=== PATIENT | male | born 1975 | race Caucasian/White ===

== ENCOUNTER → 2020-03-31 | Emergency (ER) | payer BC ==
--- NOTE | 2020-03-31 01:40 | RADIOLOGY REPORT (SQ) ---
CLINICAL HISTORY: ETOH, head injury COMPARISON: None. TECHNIQUE: CT HEAD WITHOUT IV CONTRAST on 03/31/2020 12:50 AM CDT This exam was performed according to our departmental dose-optimization program, which includes automated exposure control, adjustment of the mA and/or kV according to patient size and/or use of iterative reconstruction technique. FINDINGS: There is no acute hemorrhage, mass effect or midline shift. Yeboah-white differentiation is preserved. There is no hydrocephalus. There is no significant volume loss for age. The calvarium is intact. Orbits and globes are unremarkable. The paranasal sinuses are clear. Mastoid air cells are clear. IMPRESSION: No acute intracranial findings.
--- NOTE | 2020-03-31 01:40 | RADIOLOGY REPORT (SQ) ---
CLINICAL HISTORY: ETOH, head injury COMPARISON: None. TECHNIQUE: CT CERVICAL SPINE WITHOUT IV CONTRAST on 03/31/2020 12:50 AM CDT This exam was performed according to our departmental dose-optimization program, which includes automated exposure control, adjustment of the mA and/or kV according to patient size and/or use of iterative reconstruction technique. FINDINGS: There is no acute fracture. Alignment is anatomic. There is moderate narrowing of the C6-7 disc. Vertebral body heights are preserved. Soft tissues are unremarkable. IMPRESSION: No acute fracture or subluxation. MTDD
== END ==
LOC: ER 00:33
DX: Z53.21 Procedure and treatment not carried out due to patient leaving prior to being seen by health care provider (principal); S09.90XA Unspecified injury of head, initial encounter; F10.929 Alcohol use, unspecified with intoxication, unspecified; X58.XXXA Exposure to other specified factors, initial encounter
CPT/HCPCS: 70450; 72125

== ENCOUNTER 2020-09-12 22:09 | Inpatient (IN) | payer BC ==
[2020-09-12] MEDS ORDERED: NORMAL SALINE 1000 ML 1,000 ML IV ONE (22:43)
[2020-09-12] MEDS ORDERED: KETOROLAC TROMETHAMINE INJ/PF 30 MG/1 ML SDV IV ONE (22:43)
[2020-09-12] MEDS ORDERED: DEXAMETHASONE SOD PHOS INJ 10 MG/1 ML VIAL IV ONE (22:43)
--- NOTE | 2020-09-12 23:05 | ER Document Report ---
ED General - General Chief Complaint: Facial Swelling Stated Complaint: FACE SWOLLEN, COUGHING UP BLOOD Time Seen by Provider: 09/12/20 22:40 Notes: 45-year-old male no significant past medical history presents with throat swelling for 2 days. Patient was well when he woke up yesterday morning and gradually had onset of left throat and neck swelling. Symptoms progressed and over the last several hours has had drooling, change in voice, and shortness of breath. Patient denies any prior episodes, fever, other medical history, diabetes, HIV, immunocompromise history. History limited by patient acuity. - Related Data Allergies/Adverse Reactions: amoxicillin trihydrate [From Augmentin] Allergy (Unverified 04/12/20 15:38) Potassium Clavulanate * [From Augmentin] Allergy (Unverified 04/12/20 15:38) Past Medical History - General Information source: Patient - Social History Smoking Status: Unknown if Ever Smoked Family History: Reviewed & Not Pertinent, Other - unable 2/2 acuity Review of Systems - Review of Systems -: Yes ROS unobtainable due to patient's medical condition - unable 2/2 acuity Physical Exam - Vital signs Vitals: Temp Pulse Resp BP Pulse Ox 98.3 F 103 H 22 H 176/103 H 99 09/12/20 22:30 09/12/20 22:30 09/12/20 22:30 09/12/20 22:30 09/12/20 22:30 - Notes Notes: PHYSICAL EXAMINATION: GENERAL: Very uncomfortable appearing middle-aged male HEAD: Atraumatic, normocephalic. EYES: Pupils equal round and appropriate constriction, sclera anicteric, conjunctiva are normal. ENT: Hot potato voice, normal floor of mouth, marked focal posterior left pharyngeal edema with uvula deviated to the right side, no visible exudates, no uvular or lingual edema NECK: Normal range of motion, supple, anterior left neck edema with normal over lying skin LUNGS: Breath sounds clear to auscultation bilaterally and equal, no wheezes or stridor, tachypneic, mild accessory muscle use, speaking in few word sentences, drooling HEART: Mildly tachycardic, regular rhythm, no murmurs ABDOMEN: Soft, nontender EXTREMITIES: Normal range of motion, no pitting or edema. No cyanosis. NEUROLOGICAL: Awake, alert, conversing appropriately, moves all extremities spontaneously. PSYCH: Normal mood, normal affect. SKIN: Warm, Dry, normal turgor Course - Re-evaluation Re-evalutation: 09/12/20 23:04 2 days onset left posterior pharyngeal edema, concern for pending airway obs truction, patient tachypneic without stridor currently, drooling, given propensity for decompensation with oral tracheal intubation patient requires fiberoptic awake intubation for best possible outcome. Presentation likely secondary to large peritonsillar abscess, no risk factors for angioedema and not consistent with this presentation. I called anesthesiology via spanner operator for awake fiberoptic intubation, no answer, have alerted charge nurse who is working on issue. We will continue to closely monitor. Airway cart set up at bedside, patient on nonrebreather 09/12/20 23:27 COMPLAINT INSPECTOR Malik Fitzgerald and anesthesiologist Vivien at bedside, I discussed with Dr. Jean and will be managing patient's airway in OR. Continuing to monitor closely until transfer to the OR. 09/12/20 23:41 Patient's respiratory status unchanged, Dr. Jean outside room waiting to take patient to the OR. 09/13/20 23:50 Patient taken to the OR with anesthesiologist and Dr. Jean - Vital Signs Vital signs: Temp Pulse Resp BP Pulse Ox 98.3 F 103 H 22 H 179/116 H 97 09/12/20 22:30 09/12/20 22:31 09/12/20 22:30 09/12/20 22:31 09/12/20 22:31 - Laboratory Result Diagrams: 09/12/20 22:58 09/12/20 22:58 Laboratory results interpreted by me: 09/12/20 09/12/20 22:58 22:58 WBC 12.5 H Hgb 17.8 H Sodium 136.6 L Carbon Dioxide 20 L Discharge - Discharge Clinical Impression: Airway compromise, Pharyngeal edema Disposition: SAME DAY SURGERY Admitting Provider: Surgicalist - [facility] Admitted: OR
[2020-09-12] MEDS ORDERED: LIDOCAINE 2% INJ-PF (20 MG/ML) 10 ML AMPUL NEB ONE (23:11)
[2020-09-12 23:12] LABS: ABSOLUTE BASOPHILS # (AUTO) 0.1 10^3/uL (0.0-0.2); ABSOLUTE EOSINOPHILS # (AUTO) 0.1 10^3/uL (0.0-0.6); ABSOLUTE LYMPHOCYTES (AUTO) 3.5 10^3/uL (0.5-4.7); ABSOLUTE MONOCYTES (AUTO) 0.9 10^3/uL (0.1-1.4); ABSOLUTE NEUT (AUTO) 7.9 10^3/uL (1.7-8.2); BASOPHILS % (AUTO) 0.5 % (0-2); EOSINOPHILS % (AUTO) 0.8 % (0-6); HEMATOCRIT 50.2 % (37.9-51.0); HEMOGLOBIN 17.8 g/dL (13.5-17.0); LYMPHOCYTES % (AUTO) 28.2 % (13-45); MEAN CORPUSCULAR HEMOGLOBIN 32.5 pg (27.0-33.4); MEAN CORPUSCULAR HGB CONC 35.5 g/dL (32.0-36.0); MEAN CORPUSCULAR VOLUME 92 fl (80-97); MONOCYTES % (AUTO) 7.4 % (3-13); PLATELET COUNT 190 10^3/uL (150-450); RED BLOOD COUNT 5.47 10^6/uL (4.35-5.55); RED CELL DISTRIBUTION WIDTH 12.6 % (11.5-14.0); SEGMENTED NEUTROPHILS % (AUTO) 63.1 % (42-78); TOTAL CELLS COUNTED % (AUTO) 100 %; WHITE BLOOD COUNT 12.5 10^3/uL (4.0-10.5)
[2020-09-12] MEDS ORDERED: GLYCOPYRROLATE INJ 0.4 MG/2 ML VIAL IM ONE (23:12)
[2020-09-12 23:28] LABS: ALBUMIN 4.7 g/dL (3.5-5.0); ALKALINE PHOSPHATASE 90 U/L (38-126); ANION GAP 11 (5-19); ASPARTATE AMINO TRANSFERASE 28 U/L (17-59); BILIRUBIN,DIRECT 0.2 mg/dL (0.0-0.4); BILIRUBIN,TOTAL 1.1 mg/dL (0.2-1.3); BLOOD UREA NITROGEN 8 mg/dL (7-20); CALCIUM 9.6 mg/dL (8.4-10.2); CARBON DIOXIDE 20 mmol/L (22-30); CHLORIDE 106 mmol/L (98-107); GLUCOSE 108 mg/dL (75-110); TOTAL PROTEIN 7.5 g/dL (6.3-8.2)
[2020-09-12] MEDS ORDERED: PROPOFOL INJ 200 MG/20 ML VIAL IV ONE (23:40)
[2020-09-12] MEDS ORDERED: ONDANSETRON HCL INJ/PF 4 MG/2 ML SDV IV PRN (23:59)
[2020-09-13] MEDS ORDERED: DEXMEDETOMIDINE INJ 80 MCG/20 ML VIAL IV ONE (00:01)
[2020-09-13] MEDS ORDERED: PROPOFOL 1,000 MG/100 ML INFUS..BTL IV ONE (00:51)
[2020-09-13] MEDS ORDERED: FENTANYL CITRATE INJ/PF 100 MCG/2 ML AMPUL ONE ×3 (01:05→16:25)
[2020-09-13] MEDS ORDERED: MIDAZOLAM 2 MG/2 ML INJ ONE ×2 (01:09)
[2020-09-13] MEDS ORDERED: MIDAZOLAM HCL 50 MG/100 ML RTUINJ ONE (01:25)
[2020-09-13] MEDS: MIDAZOLAM HCL 50 MG/100 ML RTUINJ IV PRN ×3 (01:33→17:53)
--- NOTE | 2020-09-13 02:03 | CRITICAL CARE ADMISSION REPORT ---
HPI Date:: 09/13/20 Time:: 01:00 Reason for ICU Reason:: Peritonsillar abscess Admission Date/Time & PCP: Admission Date/Time: 09/12/20 23:52 Primary Care Provider: HPI: Mr. Abdiaziz Kirk is a 45-year-old male with significant past medical history. Presented to the ER with complaints of left throat and neck swelling, that began on 1020 7 in the AM. Became progressively worse throughout the day, he began drooling, muffled voice, and shortness of breath. Which prompted him to come to the ER. I was called by Dr. Haely to evaluate patient for intubation. Given the possibility of rapid decline I called Dr. Jean, and Dr. Peck spoke with anesthesia. He was taken to the OR for intubation. He is admitted to the ICU for further management. - Diagnosis/Plan (1) Pharyngeal edema Is this a current diagnosis for this admission?: Yes Plan: Status post intubation in the OR. ENT saw patient was not able to drain anything. He will follow up with him in the morning. Keep intubated and sedated Decadron 8 mg IV every 12 hours Linezolid 600 mg every 12 hours (2) Airway compromise Is this a current diagnosis for this admission?: Yes Plan: Electively intubated in the OR. Decadron for swelling. Keep intubated until swelling resolves. Past Medical History Neurological Medical History: GI Medical History: Past Surgical History Past Surgical History: Social/Family History - Social History Smoking Status: Unknown if Ever Smoked - Medication/Allergies Allergies/Adverse Reactions: amoxicillin trihydrate [From Augmentin] Allergy (Verified 09/13/20 00:33) Potassium Clavulanate * [From Augmentin] Allergy (Verified 09/13/20 00:33) Review of Systems ROS unobtainable: Other - Patient unable to speak secondary to pharyngeal edema. Physical Exam Vital Signs: Temp Pulse Resp BP Pulse Ox 98.3 F 103 H 24 H 177/114 H 96 09/12/20 22:30 09/12/20 22:31 09/12/20 23:45 09/12/20 23:45 09/13/20 00:55 Intake & Output 09/11/20 09/12/20 09/13/20 06:59 06:59 06:59 Weight 88.9 kg Weight/Height Weight 88.9 kg Height 5 ft 6 in General appearance: PRESENT: severe distress Head exam: PRESENT: atraumatic, normocephalic Eye exam: PRESENT: PERRLA Mouth exam: PRESENT: moist Throat exam: PRESENT: post pharyngeal erythema, tonsillar erythema Neck exam: PRESENT: full ROM Respiratory exam: PRESENT: accessory muscle use, clear to auscultation adrianna Cardiovascular exam: PRESENT: +S1, +S2, tachycardia Pulses: PRESENT: normal radial pulses Vascular exam: PRESENT: normal capillary refill GI/Abdominal exam: PRESENT: normal bowel sounds Rectal exam: PRESENT: deferred Extremities exam: PRESENT: full ROM Musculoskeletal exam: PRESENT: full ROM Neurological exam: PRESENT: alert, oriented to person, oriented to place, oriented to time, oriented to situation Psychiatric exam: PRESENT: anxious Laboratory/Radiographs Laboratory Results: 09/12/20 22:58 09/12/20 22:58 09/12/20 09/12/20 22:58 22:58 WBC 12.5 H RBC 5.47 Hgb 17.8 H Hct 50.2 MCV 92 MCH 32.5 MCHC 35.5 RDW 12.6 Plt Count 190 Seg Neutrophils % 63.1 Sodium 136.6 L Potassium 4.0 Chloride 106 Carbon Dioxide 20 L Anion Gap 11 BUN 8 Creatinine 0.72 Est GFR ( Amer) > 60 Glucose 108 Calcium 9.6 Total Bilirubin 1.1 AST 28 Alkaline Phosphatase 90 Total Protein 7.5 Albumin 4.7 Critical Time Critical Time (minutes): 65 -: The care of a critically ill patient is dynamic. This note represents a static moment in the admission process. Orders and treatments may be given simultaneously and urgently, and time is not signs sales representative of the treatment process. This patient requires Critical Care secondary to life threatening organ or limb dysfunction. Without Critical Care services, the patient is at risk for increased mortality and morbidity.
[2020-09-13] MEDS ORDERED: LINEZOLID 600 MG/300 ML RTUPB IV ONE (02:12)
[2020-09-13] MEDS: LINEZOLID 600 MG/300 ML RTUPB IV SCH ×3 (02:18→21:39)
[2020-09-13] MEDS: PROPOFOL 1,000 MG/100 ML INFUS..BTL IV ONE ×2 (02:35→03:58)
[2020-09-13] MEDS ORDERED: MIDAZOLAM 2 MG/2 ML INJ IV ONE (02:39)
[2020-09-13 02:44] LABS: APPEARANCE,URINE CLEAR; BILIRUBIN,URINE NEGATIVE (NEGATIVE); COLOR,URINE STRAW; GLUCOSE, URINE NEGATIVE (NEGATIVE); KETONES,URINE NEGATIVE (NEGATIVE); LEUKOCYTE ESTERASE,URINE NEGATIVE (NEGATIVE); NITRITE,URINE NEGATIVE (NEGATIVE); PROTEIN,URINE NEGATIVE (NEGATIVE); URINE SPECIFIC GRAVITY 1.004; UROBILINOGEN,URINE NEGATIVE mg/dL (<2.0)
[2020-09-13] MEDS: PROPOFOL 1,000 MG/100 ML INFUS..BTL IV PRN ×8 (03:50→22:18)
[2020-09-13] MEDS ORDERED: HEPARIN SOD (PORCINE) 5,000 UNIT/ML 1 ML VIAL SUBCUT SCH (06:00)
[2020-09-13] MEDS ORDERED: HYDROMORPHONE HCL INJ/PF 2 MG/ML AMPULE IV PRN (08:36)
[2020-09-13] MEDS ORDERED: GLYCOPYRROLATE 1 MG/5 ML VIAL ONE (08:44)
[2020-09-13] MEDS ORDERED: DEXAMETHASONE SOD PHOSPHATE INJ 4 MG/1 ML VIAL ONE (08:44)
--- NOTE | 2020-09-13 09:00 | PDOC CONSULTATION ---
Consultation Consult Date: 09/13/20 Provider Consulted: HAYLEY JEAN Consult reason:: Threatened airway History of Present Illness Admission Date/PCP: 09/12/20 23:52 History of Present Illness: JT NEIL is a 45 year old male 45-year-old male presents emergency department with a several day history of a sore throat, progressive shortness of breath, hoarseness, difficulty articulating, with drooling. Patient seen in the emergency department the patient was found to have shortness of breath, tachypnea, anxiousness, inability to thoroughly open his mouth for examination. She room physician called for airway assistance, including the ICU youth development specialist. I received a phone call from the youth development specialist who informed me to be on standby for possible trickle airway. I suggested the anesthesia team be called in. I came down to the emergency department and the lease picker was present, and the patient was assessed, found to be as described above, maintaining saturations. I initiated activation to the operating room services, with the plan to take the patient directly to the operating room for a intubation under controlled circumstances, with appropriate resources to perform operative tracheostomy if need be. The anesthesiologist was in route. Dr. Jean personally took the patient to the operating room, at which time the operating staff was arriving, and preparing for the above procedure Past Medical History Past Medical History: History of smoking Neurological Medical History: GI Medical History: Psychiatric Medical History: Denies: Depression Past Surgical History Past Surgical History: Social History Smoking Status: Unknown if Ever Smoked Electronic Cigarette use?: No - Advance Directive Resuscitation Status: Full Code Family History Family History: Reviewed & Not Pertinent, Other - unable 2/2 acuity Parental Family History Reviewed: No Children Family History Reviewed: NA Sibling(s) Family History Reviewed.: NA Medication/Allergy Allergies/Adverse Reactions: amoxicillin trihydrate [From Augmentin] Allergy (Verified 09/13/20 00:33) Potassium Clavulanate * [From Augmentin] Allergy (Verified 09/13/20 00:33) Review of Systems ROS unobtainable: Due to mental status, Other - Sent in respiratory distress, as well as high anxiety, unable to participate in review of systems Physical Exam Vital Signs: Temp Pulse Resp BP Pulse Ox 97.2 F 83 12 133/95 H 99 09/13/20 08:00 09/13/20 08:00 09/13/20 08:00 09/13/20 08:00 09/13/20 08:42 Intake & Output 09/12/20 09/13/20 09/14/20 06:59 06:59 06:59 Intake Total 495 44 Output Total 1350 350 Balance -855 -306 Weight 90 kg General appearance: PRESENT: other Head exam: PRESENT: normocephalic Eye exam: PRESENT: EOMI Mouth exam: PRESENT: dry mucosa, other - The patient was able to open his mouth partially, fully due to pain or anxiousness. There was audible stridor. No obvious pus, blood, or soft tissue swelling that could be appreciated on this limited examination. The neck was tender on the left side submandibular region Respiratory exam: PRESENT: other - Stridor, accessory muscle retraction Cardiovascular exam: PRESENT: tachycardia Pulses: PRESENT: normal carotid pulses, normal radial pulses GI/Abdominal exam: PRESENT: soft Rectal exam: PRESENT: deferred Extremities exam: PRESENT: full ROM Musculoskeletal exam: PRESENT: full ROM Neurological exam: PRESENT: other - Extremely anxious Psychiatric exam: PRESENT: anxious Results Laboratory Results: 09/12/20 22:58 09/12/20 22:58 09/12/20 09/12/20 09/13/20 22:58 22:58 01:35 WBC 12.5 H RBC 5.47 Hgb 17.8 H Hct 50.2 MCV 92 MCH 32.5 MCHC 35.5 RDW 12.6 Plt Count 190 Seg Neutrophils % 63.1 Sodium 136.6 L Potassium 4.0 Chloride 106 Carbon Dioxide 20 L Anion Gap 11 BUN 8 Creatinine 0.72 Est GFR ( Amer) > 60 Glucose 108 Calcium 9.6 Total Bilirubin 1.1 AST 28 Alkaline Phosphatase 90 Total Protein 7.5 Albumin 4.7 Urine Color STRAW Urine Appearance CLEAR Urine pH 7.0 Ur Specific [place] 1.004 Urine Protein NEGATIVE Urine Glucose (UA) NEGATIVE Urine Ketones NEGATIVE Urine Blood NEGATIVE Urine Nitrite NEGATIVE Ur Leukocyte Esterase NEGATIVE Urine WBC (Auto) 0 Urine RBC (Auto) 0 Assessment & Plan - Diagnosis (1) Airway compromise Is this a current diagnosis for this admission?: Yes Plan: Impression: Acute respiratory distress, with stridor, most consistent with an upper airway obstruction of unclear etiology Recommendations: 1. Go directly to the operating room for management of the airway transorally by anesthesia, and or conversion to operative tracheostomy if necessary. Will get ENT involved to assess upper airway for better understanding of [id number] 2. Rapid Covid test obtained and sent for interpretation 3. Family being informed of the above plan. Summary, Dr. Jean functioned in a consulting and coordinating capacity, mobilizing resources, directing the management of this acutely ill patient from approximately 11:32 PM to 1:15 AM. (4) Pharyngeal edema Is this a current diagnosis for this admission?: Yes - Time Time Spent: 50 to 70 Minutes Smoking Cessation Education: 3 to 10 minutes Medications reviewed and adjusted accordingly: Yes Anticipated discharge: Home - Inpatient Certification Based on my medical assessment, after consideration of the patient's comorbidities, presenting symptoms, or acuity I expect that the services needed warrant INPATIENT care.: Yes I certify that my determination is in accordance with my understanding of Medicare's requirements for reasonable and necessary INPATIENT services [42 CFR 412.3e].: Yes Medical Necessity: Need For IV Fluids, Need for Pain Control, Need for IV Antibiotics
--- NOTE | 2020-09-13 09:02 | Progress Note ---
Provider Note Provider Note: Pt intubated for airway protection. Dr. Figueredo to examine palatel swelling later today.
--- NOTE | 2020-09-13 09:31 | PDOC CONSULTATION ---
Consultation Consult Date: 09/13/20 Provider Consulted: JODY MC History of Present Illness Admission Date/PCP: 09/12/20 23:52 History of Present Illness: Asked by general surgery to evaluate this patient who was in airway distress. The patient presented to the emergency room with complaint of sore throat and became tachypneic. The patient started decompensating and was quickly taken to the operating room by anesthesia and general surgery to secure an airway. In discussing the intubation with both anesthesia and general surgery, they commented that the larynx appeared normal with a normal epiglottis and normal true vocal cords. An upper aerodigestive tract mass was not identified. They did state that the patient was complaining of a sore throat and trismus. When I arrived at the hospital the patient was already intubated and in the intensive care unit. Family members were not present. Past Medical History Past Medical History: Since patient was intubated, past medical history is per the emergency room note. Neurological Medical History: GI Medical History: Psychiatric Medical History: Denies: Depression Past Surgical History Past Surgical History: Unable to obtain secondary to intubation. Social history should be per the ER note. Past Surgical History: Social History Smoking Status: Unknown if Ever Smoked Electronic Cigarette use?: No - Advance Directive Resuscitation Status: Full Code Family History Family History: Reviewed & Not Pertinent, Other - unable 2/2 acuity Parental Family History Reviewed: No Children Family History Reviewed: No Sibling(s) Family History Reviewed.: No Medication/Allergy Allergies/Adverse Reactions: amoxicillin trihydrate [From Augmentin] Allergy (Verified 09/13/20 00:33) Potassium Clavulanate * [From Augmentin] Allergy (Verified 09/13/20 00:33) Review of Systems ROS unobtainable: Due to endotracheal tube - Patient is currently intubated in the intensive care unit. Patient is not responsive at this time Physical Exam Vital Signs: Temp Pulse Resp BP Pulse Ox 97.2 F 83 12 133/95 H 99 09/13/20 08:00 09/13/20 08:00 09/13/20 08:00 09/13/20 08:00 09/13/20 08:42 Intake & Output 09/12/20 09/13/20 09/14/20 06:59 06:59 06:59 Intake Total 495 62 Output Total 1350 350 Balance -855 -288 Weight 90 kg Exam: General: Patient is currently intubated and unresponsive. Oral cavity/oropharynx: Endotracheal tube in place. Edema noted of the uvula. Left peritonsillar area reveals edema with erythema. Procedure: 18-gauge needle was used to aspirate the left peritonsillar area several times. No return of purulence. Neck: No evidence of masses. Mild adenopathy. Results Laboratory Results: 09/12/20 22:58 09/12/20 22:58 09/12/20 09/12/20 09/13/20 22:58 22:58 01:35 WBC 12.5 H RBC 5.47 Hgb 17.8 H Hct 50.2 MCV 92 MCH 32.5 MCHC 35.5 RDW 12.6 Plt Count 190 Seg Neutrophils % 63.1 Sodium 136.6 L Potassium 4.0 Chloride 106 Carbon Dioxide 20 L Anion Gap 11 BUN 8 Creatinine 0.72 Est GFR ( Amer) > 60 Glucose 108 Calcium 9.6 Total Bilirubin 1.1 AST 28 Alkaline Phosphatase 90 Total Protein 7.5 Albumin 4.7 Urine Color STRAW Urine Appearance CLEAR Urine pH 7.0 Ur Specific [place] 1.004 Urine Protein NEGATIVE Urine Glucose (UA) NEGATIVE Urine Ketones NEGATIVE Urine Blood NEGATIVE Urine Nitrite NEGATIVE Ur Leukocyte Esterase NEGATIVE Urine WBC (Auto) 0 Urine RBC (Auto) 0 Assessment & Plan - Diagnosis (1) Peritonsillar cellulitis Is this a current diagnosis for this admission?: Yes Plan: 1. The diagnosis and treatment plan were discussed with the nursing staff. 2. Recommend IV antibiotics and IV steroids. I believe the patient has been be started on Zosyn and will based also started on Decadron. 3. We will reevaluate the patient to determine if another needle aspiration is warranted. 4. We will continue to follow. (2) Airway compromise Is this a current diagnosis for this admission?: Yes Plan: We will defer to the ICU staff to determine optimal time for extubation. ENT is available to perform a flexible nasopharyngolaryngoscopy upon extubation if needed. (3) Pharyngeal edema Is this a current diagnosis for this admission?: Yes (4) Respiratory distress Is this a current diagnosis for this admission?: Yes (5) Stridor Is this a current diagnosis for this admission?: Yes - Time Time Spent: 30 to 50 Minutes Medications reviewed and adjusted accordingly: No Disposition: Patient is currently intubated in the intensive care unit.
[2020-09-13] MEDS: DEXAMETHASONE SOD PHOS INJ 10 MG/1 ML VIAL IV SCH ×2 (09:39→21:39)
[2020-09-13] MEDS: FAMOTIDINE INJ/PF 20 MG/2 ML SDV IV SCH (09:40)
--- NOTE | 2020-09-13 17:02 | PDOC PROGRESS REPORT ---
Subjective Progress Note for:: 09/13/20 Reason For Visit: Follow-up visit Patient still intubated. The patient's brother was in the room and further history revealed that the patient did complain of sore throat according to the brother he did not have any problems opening his mouth it was just a sore throat was the reason why he went to the emergency room. Physical Exam Vital Signs: Temp Pulse Resp BP Pulse Ox 97.2 F 73 14 125/86 H 97 09/13/20 14:00 09/13/20 14:00 09/13/20 14:00 09/13/20 14:00 09/13/20 16:10 Intake & Output 09/12/20 09/13/20 09/14/20 06:59 06:59 06:59 Intake Total 495 298 Output Total 1350 1050 Balance -855 -752 Weight 90 kg Exam: General: Patient intubated and sedated. Oral cavity/oropharyngeal exam: Angioedema of the uvula and lateral soft palate left greater than right. There is intense swelling of the uvula. Neck: No change from yesterday. Procedure: 18-gauge needle was used to aspirate the left peritonsillar area. No purulence was aspirated. Results Laboratory Results: 09/12/20 22:58 09/12/20 22:58 09/12/20 09/12/20 09/13/20 22:58 22:58 01:35 WBC 12.5 H RBC 5.47 Hgb 17.8 H Hct 50.2 MCV 92 MCH 32.5 MCHC 35.5 RDW 12.6 Plt Count 190 Seg Neutrophils % 63.1 Sodium 136.6 L Potassium 4.0 Chloride 106 Carbon Dioxide 20 L Anion Gap 11 BUN 8 Creatinine 0.72 Est GFR ( Amer) > 60 Glucose 108 Calcium 9.6 Total Bilirubin 1.1 AST 28 Alkaline Phosphatase 90 Total Protein 7.5 Albumin 4.7 Urine Color STRAW Urine Appearance CLEAR Urine pH 7.0 Ur Specific [place] 1.004 Urine Protein NEGATIVE Urine Glucose (UA) NEGATIVE Urine Ketones NEGATIVE Urine Blood NEGATIVE Urine Nitrite NEGATIVE Ur Leukocyte Esterase NEGATIVE Urine WBC (Auto) 0 Urine RBC (Auto) 0 Assessment & Plan - Diagnosis (1) Peritonsillar cellulitis Is this a current diagnosis for this admission?: Yes (2) Airway compromise Is this a current diagnosis for this admission?: Yes (3) Pharyngeal edema Is this a current diagnosis for this admission?: Yes (4) Respiratory distress Is this a current diagnosis for this admission?: Yes (5) Stridor Is this a current diagnosis for this admission?: Yes (6) Uvular edema Is this a current diagnosis for this admission?: Yes Plan: 1. The diagnosis and treatment plan were discussed with the ICU attending. 2. Recommend continuation of the IV antibiotics and IV steroids. The uvular edema was most likely the inciting factor of the patient's tachypnea and respiratory distress. Uvular edema is secondary to an oropharyngeal infection, most likely a tonsillitis. 3. Recommend keeping head of bed 30 to 45 degrees at all times. 4. We will reassess tomorrow. If uvular edema persists then consider uvulectomy. 5. The plan was also discussed with the patient's brother. He voiced understanding and agreement. - Time Time Spent with patient: 25-34 minutes Level of Care: ICU
[2020-09-13] MEDS ORDERED: PROPOFOL INJ 200 MG/20 ML VIAL IV ONE (17:15)
[2020-09-13] MEDS ORDERED: FENTANYL CITRATE INJ/PF 100 MCG/2 ML AMPUL IV ONE (17:15)
[2020-09-13] MEDS ORDERED: LABETALOL HCL INJ 20 MG/4 ML DISP.SYRIN IV ONE (20:15)
[2020-09-13] MEDS: RINGERS SOLUTION,LACTATED 1,000 ML IV PRN (22:18)
[2020-09-13] MEDS ORDERED: CLINDAMYCIN 600 MG/D5W RTU 600 MG/50 ML RTUPB IV ONE (23:03)
[2020-09-14] MEDS: PROPOFOL 1,000 MG/100 ML INFUS..BTL IV PRN ×2 (01:52→06:18)
[2020-09-14] MEDS: MIDAZOLAM HCL 50 MG/100 ML RTUINJ IV PRN (01:52)
[2020-09-14 04:06] LABS: ABSOLUTE MONOCYTES (AUTO) 0.5 10^3/uL (0.1-1.4); ABSOLUTE NEUT (AUTO) 13.1 10^3/uL (1.7-8.2); BASOPHILS % (AUTO) 0.1 % (0-2); HEMATOCRIT 43.2 % (37.9-51.0); LYMPHOCYTES % (AUTO) 6.8 % (13-45); MEAN CORPUSCULAR HEMOGLOBIN 32.5 pg (27.0-33.4); MEAN CORPUSCULAR HGB CONC 35.5 g/dL (32.0-36.0); MEAN CORPUSCULAR VOLUME 92 fl (80-97); MONOCYTES % (AUTO) 3.7 % (3-13); PLATELET COUNT 171 10^3/uL (150-450); RED BLOOD COUNT 4.72 10^6/uL (4.35-5.55); RED CELL DISTRIBUTION WIDTH 12.4 % (11.5-14.0); SEGMENTED NEUTROPHILS % (AUTO) 89.4 % (42-78); TOTAL CELLS COUNTED % (AUTO) 100 %; WHITE BLOOD COUNT 14.6 10^3/uL (4.0-10.5)
[2020-09-14 04:09] LABS: HEMOGLOBIN 15.4 g/dL (13.5-17.0)
[2020-09-14 04:23] LABS: ALBUMIN 3.7 g/dL (3.5-5.0); ALKALINE PHOSPHATASE 63 U/L (38-126); ANION GAP 9 (5-19); ASPARTATE AMINO TRANSFERASE 19 U/L (17-59); BILIRUBIN,DIRECT 0.2 mg/dL (0.0-0.4); BILIRUBIN,TOTAL 0.6 mg/dL (0.2-1.3); BLOOD UREA NITROGEN 10 mg/dL (7-20); CALCIUM 9.2 mg/dL (8.4-10.2); CARBON DIOXIDE 22 mmol/L (22-30); CHLORIDE 105 mmol/L (98-107); GLUCOSE 129 mg/dL (75-110); PHOSPHORUS 3.4 mg/dL (2.5-4.5); POTASSIUM 4.1 mmol/L (3.6-5.0)
[2020-09-14] MEDS: RINGERS SOLUTION,LACTATED 1,000 ML IV PRN ×2 (04:28→21:57)
[2020-09-14] MEDS ORDERED: ONDANSETRON HCL INJ/PF 4 MG/2 ML SDV IV PRN (07:30)
--- NOTE | 2020-09-14 08:16 | PDOC PROGRESS REPORT ---
Subjective Progress Note for:: 09/14/20 Reason For Visit: f/u from yesterday with regards to uvular edema Pt is still sedated and intubated Physical Exam Vital Signs: Temp Pulse Resp BP Pulse Ox 98.2 F 82 9 L 146/98 H 94 09/14/20 08:00 09/14/20 08:00 09/14/20 08:00 09/14/20 08:00 09/14/20 08:00 Intake & Output 09/13/20 09/14/20 09/15/20 06:59 06:59 06:59 Intake Total 495 2023 Output Total 1350 1765 325 Balance -855 258 -325 Weight 90 kg 90.2 kg Exam: General: sedated and intubated OC/OP: uvular edema much decreased. looks much better. edema of peritonsillar area is also decreased. Overall, doing much better. Neck: no masses Results Laboratory Results: 09/14/20 03:32 09/14/20 03:32 09/14/20 09/14/20 03:32 03:32 WBC 14.6 H RBC 4.72 Hgb 15.4 D Hct 43.2 MCV 92 MCH 32.5 MCHC 35.5 RDW 12.4 Plt Count 171 Seg Neutrophils % 89.4 H Sodium 135.8 L Potassium 4.1 Chloride 105 Carbon Dioxide 22 Anion Gap 9 BUN 10 Creatinine 0.73 Est GFR ( Amer) > 60 Glucose 129 H Calcium 9.2 Phosphorus 3.4 Magnesium 2.5 H Total Bilirubin 0.6 AST 19 Alkaline Phosphatase 63 Total Protein 6.0 L Albumin 3.7 Assessment & Plan - Diagnosis (1) Peritonsillar cellulitis Is this a current diagnosis for this admission?: Yes (2) Airway compromise Is this a current diagnosis for this admission?: Yes (3) Pharyngeal edema Is this a current diagnosis for this admission?: Yes (4) Respiratory distress Is this a current diagnosis for this admission?: Yes (5) Stridor Is this a current diagnosis for this admission?: Yes (6) Uvular edema Is this a current diagnosis for this admission?: Yes Plan: 1. the diagnosis and treatment plan discussed with the ICU attending doctor. 2. the uvular has greatly decreased. No need for surgical intervention at this time. 3. recommend continuation of IV steroids and IV antibx. 4. Can start to wean off vent towards extubation. - Time Time Spent with patient: 15-24 minutes Level of Care: ICU
--- NOTE | 2020-09-14 08:41 | RADIOLOGY REPORT (SQ) ---
EXAM DESCRIPTION: CHEST SINGLE VIEW IMAGES COMPLETED DATE/TIME: 09/14/2020 6:00 am REASON FOR STUDY: intubated COMPARISON: None. EXAM PARAMETERS: NUMBER OF VIEWS: One view. TECHNIQUE: Single frontal radiographic view of the chest acquired. RADIATION DOSE: NA LIMITATIONS: None. FINDINGS: LUNGS AND PLEURA: No opacities, masses or pneumothorax. No pleural effusion. MEDIASTINUM AND HILAR STRUCTURES: No masses. Contour normal. HEART AND VASCULAR STRUCTURES: Heart normal in size. Normal vasculature. BONES: No acute findings. HARDWARE: Endotracheal tube, tip located 5 cm proximal to the [place]. OTHER: No other significant finding. IMPRESSION: SATISFACTORY POSITION OF THE ENDOTRACHEAL TUBE. NO ACUTE RADIOGRAPHIC FINDING IN THE CH EST. TECHNICAL DOCUMENTATION: JOB ID: [id number] 2010 [employer]- All Rights Reserved Reading location - IP/workstation name: [email or web address]
--- NOTE | 2020-09-14 09:24 | PDOC CRITICAL CARE PROG REPORT ---
General Date:: 09/14/20 ICU Day:: 2 Ventilator Day:: 2 Hospital Day:: 2 Resuscitation Status: Full Code Events in the past 12 to 24 Hours:: ENT evaluation of throat is improved, aim to extubate. Review of systems relevant to events:: Respiratory Reason for ICU Addmission:: Hard pallete and uvular swelling. Intubated - Medications: Medications reviewed and adjusted accordingly: Yes Vasopressors:: None Sedation:: Propofol, versed. Physical Exam Vital Signs: Temp Pulse Resp BP Pulse Ox 98.2 F 82 9 L 146/98 H 93 09/14/20 08:00 09/14/20 08:00 09/14/20 08:00 09/14/20 08:00 09/14/20 08:16 Intake & Output 09/13/20 09/14/20 09/15/20 06:59 06:59 06:59 Intake Total 495 2023 Output Total 1350 1765 325 Balance -855 258 -325 Weight 90 kg 90.2 kg Weight/Height Weight 90.2 kg Height 5 ft 6 in General appearance: PRESENT: no acute distress Head exam: PRESENT: atraumatic, normocephalic Eye exam: PRESENT: conjunctiva pink, EOMI, PERRLA. ABSENT: scleral icterus Ear exam: PRESENT: normal external ear exam Mouth exam: PRESENT: tongue midline, other - ENT evaluation by Dr. Figueredo shows improvement in swelling. Neck exam: ABSENT: carotid bruit, JVD, lymphadenopathy, thyromegaly Respiratory exam: PRESENT: clear to auscultation adrianna. ABSENT: rales, rhonchi, wheezes Cardiovascular exam: PRESENT: RRR. ABSENT: diastolic murmur, rubs, systolic murmur GI/Abdominal exam: PRESENT: normal bowel sounds, soft. ABSENT: distended, gua rding, mass, organolmegaly, rebound, tenderness Rectal exam: PRESENT: deferred Gentrourinary exam: PRESENT: indwelling catheter Extremities exam: PRESENT: full ROM. ABSENT: calf tenderness, clubbing, pedal edema Musculoskeletal exam: PRESENT: normal inspection Neurological exam: PRESENT: other - Sedated. Tubes/Lines: PRESENT: Endotracheal Tube, Nasogastic Tube Laboratory/Radiographs Laboratory Results: 09/14/20 03:32 09/14/20 03:32 09/14/20 09/14/20 03:32 03:32 WBC 14.6 H RBC 4.72 Hgb 15.4 D Hct 43.2 MCV 92 MCH 32.5 MCHC 35.5 RDW 12.4 Plt Count 171 Seg Neutrophils % 89.4 H Sodium 135.8 L Potassium 4.1 Chloride 105 Carbon Dioxide 22 Anion Gap 9 BUN 10 Creatinine 0.73 Est GFR ( Amer) > 60 Glucose 129 H Calcium 9.2 Phosphorus 3.4 Magnesium 2.5 H Total Bilirubin 0.6 AST 19 Alkaline Phosphatase 63 Total Protein 6.0 L Albumin 3.7 Impressions: Chest X-Ray 09/14/20 06:00 IMPRESSION: SATISFACTORY POSITION OF THE ENDOTRACHEAL TUBE. NO ACUTE RADIOGRAPHIC FINDING IN THE CHEST. All labs, radiographs, diagnostic studies and EKGs were personally reviewed: Yes In addition, reports of radiographic and diagnostic studies were read: Yes Assessment and Plan - Diagnosis (1) Airway compromise Is this a current diagnosis for this admission?: Yes Plan: He has a cuff leak and is weaning well. (2) Uvular edema Is this a current diagnosis for this admission?: Yes Plan: Improved, still keep on decadron, abx. Plan Summary: Hope to extubate this AM. Critical Time Critical Time (minutes): 35 Level of Care: ICU Anticipated discharge: Home Anticipated DC Timeframe: Other -: 1. The care of a critical patient is a dynamic process. This note is a sales representative meats synopsis but static in nature. The timeframe for treatments given in order is not necessarily the actual time these treatments may have been done. 2. This patient requires critical care secondary to ongoing requirements for therapy not offered or safe outside the critical care environment. Transfer to a lower level of care will result in altered life or limb morbidity and mortality. 3. Multidisciplinary rounds completed. 4. ABCDE bundle addressed.
[2020-09-14] MEDS: DEXAMETHASONE SOD PHOS INJ 10 MG/1 ML VIAL IV SCH ×2 (09:29→21:58)
[2020-09-14] MEDS: FAMOTIDINE INJ/PF 20 MG/2 ML SDV IV SCH (09:29)
[2020-09-14] MEDS: LINEZOLID 600 MG/300 ML RTUPB IV SCH ×2 (09:59→21:58)
[2020-09-14] MEDS: HYDROMORPHONE HCL INJ/PF 2 MG/ML AMPULE IV PRN (20:58)
[2020-09-15] MEDS: HYDROMORPHONE HCL INJ/PF 2 MG/ML AMPULE IV PRN ×2 (01:06→09:51)
[2020-09-15 06:44] LABS: ABSOLUTE LYMPHOCYTES (AUTO) 1.4 10^3/uL (0.5-4.7); ABSOLUTE MONOCYTES (AUTO) 0.8 10^3/uL (0.1-1.4); ABSOLUTE NEUT (AUTO) 12.7 10^3/uL (1.7-8.2); BASOPHILS % (AUTO) 0.3 % (0-2); HEMATOCRIT 45.3 % (37.9-51.0); HEMOGLOBIN 15.7 g/dL (13.5-17.0); LYMPHOCYTES % (AUTO) 9.2 % (13-45); MEAN CORPUSCULAR HGB CONC 34.8 g/dL (32.0-36.0); MEAN CORPUSCULAR VOLUME 92 fl (80-97); MONOCYTES % (AUTO) 5.1 % (3-13); PLATELET COUNT 159 10^3/uL (150-450); RED BLOOD COUNT 4.92 10^6/uL (4.35-5.55); RED CELL DISTRIBUTION WIDTH 12.4 % (11.5-14.0); SEGMENTED NEUTROPHILS % (AUTO) 85.4 % (42-78); TOTAL CELLS COUNTED % (AUTO) 100 %; WHITE BLOOD COUNT 14.8 10^3/uL (4.0-10.5)
[2020-09-15 07:01] LABS: ALBUMIN 3.8 g/dL (3.5-5.0); ALKALINE PHOSPHATASE 62 U/L (38-126); ANION GAP 9 (5-19); ASPARTATE AMINO TRANSFERASE 23 U/L (17-59); BILIRUBIN,DIRECT 0.3 mg/dL (0.0-0.4); BILIRUBIN,TOTAL 0.7 mg/dL (0.2-1.3); BLOOD UREA NITROGEN 10 mg/dL (7-20); CALCIUM 9.2 mg/dL (8.4-10.2); CARBON DIOXIDE 24 mmol/L (22-30); CHLORIDE 109 mmol/L (98-107); GLUCOSE 120 mg/dL (75-110); PHOSPHORUS 3.6 mg/dL (2.5-4.5); POTASSIUM 4.2 mmol/L (3.6-5.0); TOTAL PROTEIN 6.5 g/dL (6.3-8.2)
[2020-09-15] MEDS: LINEZOLID 600 MG/300 ML RTUPB IV SCH ×2 (09:35→21:20)
[2020-09-15] MEDS: RINGERS SOLUTION,LACTATED 1,000 ML IV PRN (09:37)
[2020-09-15] MEDS: DEXAMETHASONE SOD PHOS INJ 10 MG/1 ML VIAL IV SCH ×2 (09:47→21:21)
[2020-09-15] MEDS: OXYCODONE-ACETAMINOPHEN 5-325 MG TABLET PO PRN ×3 (14:56→23:18)
--- NOTE | 2020-09-15 15:42 | PDOC PROGRESS REPORT ---
Subjective Progress Note for:: 09/15/20 Subjective:: No adverse events overnight. No new complaints. Vital signs been stable. He has been on liquids and would like to have his diet advanced. No fevers. No dyspnea. Reason For Visit: PAERITONSILLAR ABSCESS Physical Exam Vital Signs: Temp Pulse Resp BP Pulse Ox 97.7 F 100 17 161/99 H 97 09/15/20 11:33 09/15/20 14:00 09/15/20 11:33 09/15/20 11:33 09/15/20 11:33 Intake & Output 09/14/20 09/15/20 09/16/20 06:59 06:59 06:59 Intake Total 2022 183 1300 Output Total 176 1900 Balance 258 -69 1300 Weight 90.2 kg 87.7 kg 87.7 kg General appearance: PRESENT: no acute distress, cooperative, disheveled, obese Head exam: PRESENT: atraumatic, normocephalic Throat exam: ABSENT: tonsillogmegaly Neck exam: PRESENT: full ROM, tenderness - Very mild, other - No lump or induration was palpated. ABSENT: carotid bruit, JVD, lymphadenopathy, meningismus, thyromegaly Respiratory exam: PRESENT: clear to auscultation adrianna, symmetrical, unlabored. ABSENT: accessory muscle use, chest wall tenderness, crackles, prolonged expiratory phas, rhonchi, stridor, tachypnea, wheezes Cardiovascular exam: PRESENT: RRR, +S1, +S2 Pulses: PRESENT: normal carotid pulses Vascular exam: PRESENT: normal capillary refill GI/Abdominal exam: PRESENT: normal bowel sounds, soft. ABSENT: distended, guarding, rebound, tenderness Extremities exam: ABSENT: clubbing, pedal edema Musculoskeletal exam: PRESENT: normal inspection. ABSENT: deformity Neurological exam: PRESENT: alert, awake, oriented to person, oriented to place, oriented to situation Psychiatric exam: PRESENT: appropriate affect, normal mood Skin exam: PRESENT: dry, warm Results Laboratory Results: 09/15/20 06:09 09/15/20 06:12 09/15/20 09/15/20 06:09 06:12 WBC 14.8 H RBC 4.92 Hgb 15.7 Hct 45.3 MCV 92 MCH 32.0 MCHC 34.8 RDW 12.4 Plt Count 159 Seg Neutrophils % 85.4 H Sodium 141.5 Potassium 4.2 Chloride 109 H Carbon Dioxide 24 Anion Gap 9 BUN 10 Creatinine 0.69 Est GFR ( Amer) > 60 Glucose 120 H Calcium 9.2 Phosphorus 3.6 Magnesium 2.5 H Total Bilirubin 0.7 AST 23 Alkaline Phosphatase 62 Total Protein 6.5 Albumin 3.8 Impressions: Chest X-Ray 09/14/20 06:00 IMPRESSION: SATISFACTORY POSITION OF THE ENDOTRACHEAL TUBE. NO ACUTE RADIOGRAPHIC FINDING IN THE CHEST. Assessment and Plan - Diagnosis (1) Airway compromise Is this a current diagnosis for this admission?: Yes (2) Peritonsillar cellulitis Is this a current diagnosis for this admission?: Yes (3) Pharyngeal edema Is this a current diagnosis for this admission?: Yes (4) Respiratory distress Is this a current diagnosis for this admission?: Yes (5) Stridor Is this a current diagnosis for this admission?: Yes (6) Uvular edema Is this a current diagnosis for this admission?: Yes - Plan Summary Summary: He is responding to antibiotics and steroids. We will probably transition him to some oral antibiotics empirically, along with some prednisone. Dr. Figueredo attempted to aspirate pus from the area of concern but this was unsuccessful. He did not require any sort of surgical incision and debridement. Advance his diet today. Switch his pain medication to oral. Anticipate discharge home tomorrow with outpatient follow-up. - Time Time Spent with patient: 15-24 minutes Anticipated Discharge Disposition: Home, Self Care Anticipated Discharge Timeframe: within 24 hours
[2020-09-16 06:19] LABS: ABSOLUTE LYMPHOCYTES (AUTO) 1.5 10^3/uL (0.5-4.7); ABSOLUTE MONOCYTES (AUTO) 0.8 10^3/uL (0.1-1.4); ABSOLUTE NEUT (AUTO) 10.3 10^3/uL (1.7-8.2); BASOPHILS % (AUTO) 0.1 % (0-2); HEMATOCRIT 44.3 % (37.9-51.0); HEMOGLOBIN 15.6 g/dL (13.5-17.0); LYMPHOCYTES % (AUTO) 12.2 % (13-45); MEAN CORPUSCULAR HEMOGLOBIN 32.5 pg (27.0-33.4); MEAN CORPUSCULAR HGB CONC 35.1 g/dL (32.0-36.0); MEAN CORPUSCULAR VOLUME 92 fl (80-97); MONOCYTES % (AUTO) 6.2 % (3-13); PLATELET COUNT 179 10^3/uL (150-450); RED CELL DISTRIBUTION WIDTH 12.3 % (11.5-14.0); SEGMENTED NEUTROPHILS % (AUTO) 81.5 % (42-78); TOTAL CELLS COUNTED % (AUTO) 100 %; WHITE BLOOD COUNT 12.6 10^3/uL (4.0-10.5)
[2020-09-16 06:46] LABS: ALBUMIN 3.9 g/dL (3.5-5.0); ALKALINE PHOSPHATASE 56 U/L (38-126); ANION GAP 12 (5-19); ASPARTATE AMINO TRANSFERASE 28 U/L (17-59); BILIRUBIN,DIRECT 0.1 mg/dL (0.0-0.4); BILIRUBIN,TOTAL 0.8 mg/dL (0.2-1.3); BLOOD UREA NITROGEN 14 mg/dL (7-20); CALCIUM 9.4 mg/dL (8.4-10.2); CARBON DIOXIDE 23 mmol/L (22-30); CHLORIDE 103 mmol/L (98-107); GLUCOSE 121 mg/dL (75-110); PHOSPHORUS 3.6 mg/dL (2.5-4.5); POTASSIUM 4.4 mmol/L (3.6-5.0); TOTAL PROTEIN 6.7 g/dL (6.3-8.2)
[2020-09-16] MEDS: OXYCODONE-ACETAMINOPHEN 5-325 MG TABLET PO PRN (07:56)
[2020-09-16] MEDS: DEXAMETHASONE SOD PHOS INJ 10 MG/1 ML VIAL IV SCH (09:31)
[2020-09-16] MEDS: LINEZOLID 600 MG/300 ML RTUPB IV SCH (09:32)
[2020-09-16 11:07] VITALS: BP 161/91
--- NOTE | 2020-09-16 15:01 | PDOC DISCHARGE SUMMARY ---
Impression - Admit/DC Date/PCP Admission Date/Primary Care Provider: 09/12/20 23:52 Discharge Date: 09/16/20 - Discharge Diagnosis (1) Airway compromise Is this a current diagnosis for this admission?: Yes (2) Peritonsillar cellulitis Is this a current diagnosis for this admission?: Yes (3) Pharyngeal edema Is this a current diagnosis for this admission?: Yes (4) Respiratory distress Is this a current diagnosis for this admission?: Yes (5) Stridor Is this a current diagnosis for this admission?: Yes (6) Uvular edema Is this a current diagnosis for this admission?: Yes - Assessment Summary: He is responding to antibiotics and steroids. We will probably transition him to some oral antibiotics empirically, along with some prednisone. Dr. Figueredo attempted to aspirate pus from the area of concern but this was unsuccessful. He did not require any sort of surgical incision and debridement. Advance his diet today. Switch his pain medication to oral. Anticipate discharge home tomorrow with outpatient follow-up. - Additional Information Resuscitation Status: Full Code Discharge Diet: Cardiac Discharge Activity: Slowly Increase Activity Referrals: CARSON PEREZ DO [NO LOCAL MD] - Follow up as needed Prescriptions: Clindamycin HCl [Cleocin 150 mg Capsule] 450 mg PO Q6 #144 capsule Prednisone [Deltasone 20 mg Tablet] 40 mg PO DAILY #10 tablet Home Medications: Clindamycin HCl [Cleocin 150 mg Capsule] 450 mg PO Q6 #144 capsule 09/16/20 Prednisone [Deltasone 20 mg Tablet] 40 mg PO DAILY #10 tablet 09/16/20 History of Present Illiness History of Present Illness: JT NEIL is a 45 year old male with significant past medical history. Presented to the ER with complaints of left throat and neck swelling, that began on 1020 7 in the AM. Became progressively worse throughout the day, he began drooling, muffled voice, and shortness of breath. Which prompted him to come to the ER. I was called by Dr. Healy to evaluate patient for intubation. Given the possibility of rapid decline I called Dr. Jean, and Dr. Peck spoke with anesthesia. He was taken to the OR for intubation. He is admitted to the ICU for further management. Hospital Course Hospital Course: He had to be intubated to protect his airway but there was no swelling. He was seen by Dr. Figueredo who attempted to aspirate around the affected area but there was nothing aspirated, indicating that this was a cellulitis and not an abscess. He responded very well to steroids and antibiotics. Nothing ever grew out of his cultures. He was successfully extubated. We will put him empirically on clindamycin to give him a total of 14 days of treatment. We will also give him a few more days of prednisone at home. He was told to return if his symptoms recur. He verbalizes understanding. He was breathing well, eating and drinking without difficulty. Labs and examination were reassuring and he was discharged in stable condition. Was also strongly recommended that he get a primary care provider to follow-up on his overall health including his blood pressure. Physical Exam Vital Signs: Temp Pulse Resp BP Pulse Ox 98 F 72 17 161/91 H 98 09/16/20 11:04 09/16/20 11:04 09/16/20 11:04 09/16/20 11:04 09/16/20 11:04 Intake & Output 09/15/20 09/16/20 09/17/20 06:59 06:59 05:59 Intake Total 1831 3208 Output Total 1900 Balance -69 3208 Weight 87.7 kg 87.7 kg General appearance: PRESENT: no acute distress, cooperative, disheveled, obese Head exam: PRESENT: atraumatic, normocephalic Throat exam: ABSENT: tonsillogmegaly Neck exam: PRESENT: full ROM, tenderness - Very mild, other - No lump or induration was palpated. ABSENT: carotid bruit, JVD, lymphadenopathy, meningismus, thyromegaly Respiratory exam: PRESENT: clear to auscultation adrianna, symmetrical, unlabored. ABSENT: accessory muscle use, chest wall tenderness, crackles, prolonged expiratory phas, rhonchi, stridor, tachypnea, wheezes Cardiovascular exam: PRESENT: RRR, +S1, +S2 Pulses: PRESENT: normal carotid pulses Vascular exam: PRESENT: normal capillary refill GI/Abdominal exam: PRESENT: normal bowel sounds, soft. ABSENT: distended, guarding, rebound, tenderness Extremities exam: ABSENT: clubbing, pedal edema Musculoskeletal exam: PRESENT: normal inspection. ABSENT: deformity Neurological exam: PRESENT: alert, awake, oriented to person, oriented to place, oriented to situation Psychiatric exam: PRESENT: appropriate affect, normal mood Skin exam: PRESENT: dry, warm Results Laboratory Results: WBC 12.6 10^3/uL (4.0-10.5) H 09/16/20 05:09 RBC 4.80 10^6/uL (4.35-5.55) 09/16/20 05:09 Hgb 15.6 g/dL (13.5-17.0) 09/16/20 05:09 Hct 44.3 % (37.9-51.0) 09/16/20 05:09 MCV 92 fl (80-97) 09/16/20 05:09 MCH 32.5 pg (27.0-33.4) 09/16/20 05:09 MCHC 35.1 g/dL (32.0-36.0) 09/16/20 05:09 RDW 12.3 % (11.5-14.0) 09/16/20 05:09 Plt Count 179 10^3/uL (150-450) 09/16/20 05:09 Lymph % (Auto) 12.2 % (13-45) L 09/16/20 05:09 [place] % (Auto) 6.2 % (3-13) 09/16/20 05:09 Eos % (Auto) 0.0 % (0-6) 09/16/20 05:09 Baso % (Auto) 0.1 % (0-2) 09/16/20 05:09 Absolute Neuts (auto) 10.3 10^3/uL (1.7-8.2) H 09/16/20 05:09 Absolute Lymphs (auto) 1.5 10^3/uL (0.5-4.7) 09/16/20 05:09 Absolute Monos (auto) 0.8 10^3/uL (0.1-1.4) 09/16/20 05:09 Absolute Eos (auto) 0.0 10^3/uL (0.0-0.6) 09/16/20 05:09 Absolute Basos (auto) 0.0 10^3/uL (0.0-0.2) 09/16/20 05:09 Seg Neutrophils % 81.5 % (42-78) H 09/16/20 05:09 Sodium 137.5 mmol/L (137-145) 09/16/20 05:09 Potassium 4.4 mmol/L (3.6-5.0) 09/16/20 05:09 Chloride 103 mmol/L (98-107) 09/16/20 05:09 Carbon Dioxide 23 mmol/L (22-30) 09/16/20 05:09 Anion Gap 12 (5-19) 09/16/20 05:09 BUN 14 mg/dL (7-20) 09/16/20 05:09 Creatinine 0.68 mg/dL (0.52-1.25) 09/16/20 05:09 Est GFR ( Amer) > 60 (>60) 09/16/20 05:09 Est GFR (MDRD) Non-Af > 60 (>60) 09/16/20 05:09 Glucose 121 mg/dL (75-110) H 09/16/20 05:09 Calcium 9.4 mg/dL (8.4-10.2) 09/16/20 05:09 Phosphorus 3.6 mg/dL (2.5-4.5) 09/16/20 05:09 Magnesium 2.4 mg/dL (1.6-2.3) H 09/16/20 05:09 Total Bilirubin 0.8 mg/dL (0.2-1.3) 09/16/20 05:09 Direct Bilirubin 0.1 mg/dL (0.0-0.4) 09/16/20 05:09 Neonat Total Bilirubin Not Reportable 09/16/20 05:09 Neonat Direct Bilirubin Not Reportable 09/16/20 05:09 Neonat Indirect Bili Not Reportable 09/16/20 05:09 AST 28 U/L (17-59) 09/16/20 05:09 ALT 25 U/L (<50) 09/16/20 05:09 Alkaline Phosphatase 56 U/L (38-126) 09/16/20 05:09 Total Protein 6.7 g/dL (6.3-8.2) 09/16/20 05:09 Albumin 3.9 g/dL (3.5-5.0) 09/16/20 05:09 Urine Color STRAW 09/13/20 01:35 Urine Appearance CLEAR 09/13/20 01:35 Urine pH 7.0 (5.0-9.0) 09/13/20 01:35 Ur Specific [place] 1.004 09/13/20 01:35 Urine Protein NEGATIVE mg/dL (NEGATIVE) 09/13/20 01:35 Urine Glucose (UA) NEGATIVE mg/dL (NEGATIVE) 09/13/20 01:35 Urine Ketones NEGATIVE mg/dL (NEGATIVE) 09/13/20 01:35 Urine Blood NEGATIVE (NEGATIVE) 09/13/20 01:35 Urine Nitrite NEGATIVE (NEGATIVE) 09/13/20 01:35 Urine Bilirubin NEGATIVE (NEGATIVE) 09/13/20 01:35 Urine Urobilinogen NEGATIVE mg/dL (<2.0) 09/13/20 01:35 Ur Leukocyte Esterase NEGATIVE (NEGATIVE) 09/13/20 01:35 Urine WBC (Auto) 0 /HPF 09/13/20 01:35 Urine RBC (Auto) 0 /HPF 09/13/20 01:35 Urine Bacteria (Auto) TRACE /HPF 09/13/20 01:35 Squamous Epi Cells Auto <1 /HPF 09/13/20 01:35 Urine Mucus (Auto) RARE /LPF 09/13/20 01:35 Urine Ascorbic Acid NEGATIVE (NEGATIVE) 09/13/20 01:35 SARS-CoV-2 (PCR) NEGATIVE (NEGATIVE) 09/12/20 23:27 Impressions: Chest X-Ray 09/14/20 06:00 IMPRESSION: SATISFACTORY POSITION OF THE ENDOTRACHEAL TUBE. NO ACUTE RADIOGRAPHIC FINDING IN THE CHEST. Plan Time Spent: Greater than 30 Minutes Stroke Is this a Stroke Patient?: No Acute Heart Failure Is this a Heart Failure Patient?: No
== END 2020-09-16 11:55 | disposition home or self-care (01) | DRG 153 ==
LOC: ER 22:09 → EH 23:52 → ICU 09-13 00:46 → 4S 09-14 21:25
PROVIDERS: ADMIT Anesthesiology; ATTEND Family Medicine
PROC: 0BH17EZ Insertion of Endotracheal Airway into Trachea, Via Natural or Artificial Opening (ICD-10-PCS; 2020-09-13)
PROC: 0WJ Anatomical Regions, General, Inspection (ICD-10-PCS; 2020-09-13)
PROC: 5A1945Z Respiratory Ventilation, 24-96 Consecutive Hours (ICD-10-PCS; principal; 2020-09-13 00:15)
DX: J36 Peritonsillar abscess (principal); Z78.1 Physical restraint status; Z20.828 Contact with and (suspected) exposure to other viral communicable diseases; J39.2 Other diseases of pharynx; R06.03 Acute respiratory distress; R06.1 Stridor; J38.4 Edema of larynx; Z88.0 Allergy status to penicillin
CPT/HCPCS: 320; 36415; 71045; 80053; 81001; 83735; 84100; 85025; 87040; 87635; 94002; 94003; 94799; 99140; 99291; C9803; J1100; J1170; J1885; J2020; J2250; J2704; J3010; J3490; J7030; J7120; S0028